=== PATIENT | male | born 1985 | race Caucasian/White ===

== ENCOUNTER 2021-12-03 01:42 | Emergency (ER) | payer OTHER ==
[~2021-12-03] VITALS: Ht 167.6 cm; Wt 68.0 kg
[2021-12-03 01:49] VITALS: BP 129/70
[2021-12-03] MEDS ORDERED: NORCO7.5 PO (02:21)
[2021-12-03] MEDS ORDERED: DOXYCYCLINE 10100 MG PO (02:21)
== END 2021-12-03 03:03 | disposition home or self-care (01) ==
LOC: ER 01:42
DX: L02.214 Cutaneous abscess of groin (principal); Z98.890 Other specified postprocedural states